=== PATIENT | male | born 1945 | race Caucasian/White ===

== ENCOUNTER → 2019-03-25 | Outpatient (CLI) | payer MEDICARE ==
[2019-03-25] MEDS: REGADENOSON 0.4 MG/5 ML SYG (11:00)
== END | disposition home or self-care (01) ==
LOC: EKG 06:56
DX: Z01.818 Encounter for other preprocedural examination (principal); I10 Essential (primary) hypertension; E11.9 Type 2 diabetes mellitus without complications
CPT/HCPCS: 78452; 93017; 93306